=== PATIENT | male | born 1950 | race Native Hawaiian/Other Pacific Islander ===

== ENCOUNTER 2022-08-14 15:03 | Outpatient (CLI) | payer OTHER | END 2022-08-14 19:21 | disposition home or self-care (01) | LOC: RAD 15:03 | PROVIDERS: ATTEND Internal Medicine | DX: M25.512 Pain in left shoulder (principal) ==

== ENCOUNTER 2022-11-11 14:31 | Outpatient (CLI) | payer OTHER | END 2022-11-11 22:08 | disposition home or self-care (01) | LOC: CT 14:31 | PROVIDERS: ATTEND Internal Medicine | DX: R51.9 Headache, unspecified (principal); R42 Dizziness and giddiness; E11.9 Type 2 diabetes mellitus without complications ==